=== PATIENT | male | born 1955 | race Caucasian/White ===

== ENCOUNTER 2018-11-02 14:45 | Emergency (ER) | payer OTHER ==
[~2018-11-02] VITALS: Ht 175.3 cm; Wt 93.2 kg
[~2018-11-02 14:45] MED LIST: ALLOPURINOL100 MG PO; AMLODIPINE10 MG PO; AMOXICILLIN/CL875 MG PO; CIALIS20 MG PO; CIPROFLOXACN500 MG PO; CRESTOR5 MG PO; CYCLOBENZAPR10 MG PO; EQ IBUPROFEN200 MG OR; FLEXERIL PO; INDOCIN25 MG OR; METRONIDAZOL500 MG PO; MICARDIS H80 MG/25 M OR; MICARDIS H80 MG/25 M PO; NAPROSYN500 MG PO; NAPROXEN500 MG PO; PRAVASTATIN SOD20 MG PO; PRAVASTATIN SOD40 MG PO; PRAVASTATIN20 MG PO; ULTRAM50 M1 PO; ZOFRAN ODT4 MG PO
[2018-11-02] MEDS ORDERED: CIPROFLOXACN500 MG PO (15:13)
[2018-11-02] MEDS ORDERED: PRAVASTATIN SOD20 MG PO (15:14)
[2018-11-02] MEDS ORDERED: AMLODIPINE BESY10 MG PO (15:15)
[2018-11-02] MEDS ORDERED: ALLOPURINOL300 MG PO (15:15)
[2018-11-02] MEDS ORDERED: MICARDIS H80 MG/25 M PO (15:16)
[2018-11-02 15:20] VITALS: BP 142/84
== END 2018-11-02 15:20 | disposition home or self-care (01) | DRG 605 ==
LOC: ED 14:45
DX: S91.331A Puncture wound without foreign body, right foot, initial encounter (principal); W45.0XXA Nail entering through skin, initial encounter; Y93.89 Activity, other specified; Y92.89 Other specified places as the place of occurrence of the external cause